=== PATIENT | female | born 1985 | race Caucasian/White ===

== ENCOUNTER 2018-10-22 10:12 | Day surgery (SDC) | payer MEDICAID, OTHER ==
[~2018-10-22] VITALS: Ht 157.5 cm; Wt 57.2 kg
[2018-10-22] VITALS (13 sets, daily range): BP systolic 107–130; BP diastolic 53–74; PULSE 60–105; RESP 10–23; Ht 157.5 cm; Wt 57.2 kg
--- NOTE | 2018-10-22 11:50 | PREAC ---
Date/Time of Note Date/Time of Note DATE: 10/22/18 TIME: 11:49 Anesthesia Eval and Record Evaluation Time Pre-Procedure Interview DATE: 10/22/18 TIME: 11:49 Age 32 Sex female NPO: 8 hrs Preoperative diagnosis desires BTL Planned procedure BTL Past Medical History Past Medical History: None Surgery & Anesthesia Issues No known issue Meds Anticoagulation: No Beta Wilberto within 24 hr: No Reason Beta Wilberto not given: Pt. not on B-Wilberto No Active Prescriptions or Reported Meds Meds reviewed: Yes Allergies Coded Allergies: No Known Allergy (Unverified , 10/22/18) Allergies Reviewed: Yes Labs/Studies Labs Reviewed: Reviewed by anesthesiologist Result Diagram: 10/22/18 1133 Laboratory Tests 10/22/18 11:33 Blood Bank Test 10/22/18 11:00 Blood Type O POSITIVE test: Negative Pre-procedure Exam Last vitals Vital Signs Date Temp Pulse Resp B/P (MAP) Pulse Ox O2 O2 Flow FiO2 Time Delivery Rate 10/22/18 98.3 105 18 130/57 97 Room Air 11:24 (81) Airway: Adequate mouth opening, Adequate thyromental dist Mallampati: Mallampati II Teeth: Normal Lung: Normal Heart: Normal ASA Physical Status ASA physical status: 1 Emergency: None Planned Anesthetic General/MAC: ETT Nerve block: Brachial plexus (bilateral) Pre-operative Attestations Prior to commencing anesthesia and surgery, the patient was re-evaluated, there was verification of: *The patient's identity *The results of appropriate recent lab work and preoperative vital signs *The above evaluation not changing prior to induction *Anesthetic plan, risk benefits, alternative and complications discussed with patient/family; questions answered; patient/family understands, accepts and wishes to proceed. LIZBETH WING Oct 22, 2018 11:50
[2018-10-22] MEDS ORDERED: ONDANSETRON 4 MG INJ IV PRN ×2 (12:00→14:00)
[2018-10-22] MEDS ORDERED: ALBUTEROL 0.083% (NEB) 2.5 MG/3 ML AMP HHN PRN (12:00)
[2018-10-22] MEDS ORDERED: HYDROmorphONE 1 MG/5 ML IV SYRINGE IV PRN ×3 (12:00)
[2018-10-22] MEDS ORDERED: METOCLOPRAMIDE 10 MG INJ IV PRN (12:00)
[2018-10-22] MEDS ORDERED: MEPERIDINE 25 MG INJ IV PRN (12:00)
[2018-10-22] MEDS ORDERED: DIPHENHYDRAMINE 50 MG INJ IV PRN (12:00)
[2018-10-22] MEDS ORDERED: FENTAnyl 50 MCG/ML VIAL IV PRN ×3 (12:00)
[2018-10-22] MEDS ORDERED: ROPIVACAINE 0.5 % 30 ML VIAL ONE (12:02)
[2018-10-22] MEDS ORDERED: FENTAnyl 50 MCG/ML VIAL ONE (12:02)
[2018-10-22] MEDS ORDERED: PROPOFOL 20 ML ONE (13:09)
[2018-10-22] MEDS ORDERED: SUCCINYLCHOLINE CHLORIDE 100 MG/5 ML SYG IV ONE (13:09)
[2018-10-22] MEDS ORDERED: GLYCOPYRROLATE 0.4 MG INJ ONE (13:09)
[2018-10-22] MEDS ORDERED: CEFAZOLIN 1 GM INJ ONE (13:09)
[2018-10-22] MEDS ORDERED: NEOSTIGMINE 3 MG/3 ML SYRINGE ONE (13:09)
[2018-10-22] MEDS ORDERED: LIDOCAINE 100 MG SYRINGE ONE (13:09)
[2018-10-22] MEDS ORDERED: ROCURONIUM 50 MG INJ ONE (13:09)
--- NOTE | 2018-10-22 13:40 | SIPON ---
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
--- NOTE | 2018-10-22 13:54 | PAC ---
Date/Time of Note Date/Time of Note DATE: 10/22/18 TIME: 13:54 Post-Anesthesia Notes Post-Anesthesia Note Last documented vital signs Vital Signs Date Temp Pulse Resp B/P (MAP) Pulse Ox O2 O2 Flow FiO2 Time Delivery Rate 10/22/18 78 15 112/53 93 Room Air 13:40 (72) 10/22/18 98.0 13:24 Activity: WNL Respiratory function: WNL Cardiovascular function: WNL Mental status: Baseline Pain reasonably controlled: Yes Hydration appropriate: Yes Nausea/Vomiting absent: Yes LIZBETH WING Oct 22, 2018 13:54
[2018-10-22] MEDS ORDERED: KETOROLAC 30 MG INJ IV PRN (14:00)
[2018-10-22] MEDS ORDERED: HYDROCODONE/APAP (5/325) TAB PO PRN ×2 (14:00)
[2018-10-22] MEDS ORDERED: morphine 2 MG INJ IV PRN (14:00)
--- NOTE | 2018-10-22 14:00 | PREOPHP ---
DATE OF ADMISSION: 10/22/2018 HISTORY OF PRESENT ILLNESS: A 32-year-old female 5, para 4, AB 1, last menstrual period of 0 10/12/2018, is admitted for voluntary sterilization. PAST MEDICAL HISTORY: Unremarkable. PAST SURGICAL HISTORY: Unremarkable. ALLERGIES: NO KNOWN ALLERGIES. FAMILY HISTORY: Noncontributory. PHYSICAL EXAMINATION: VITAL SIGNS: The patient is afebrile. Stable. HEAD, NECK AND CHEST: Within normal limits. ABDOMEN: Soft, nontender, nondistended. PELVIC: Normal. EXTREMITIES: Within normal limits. NEUROLOGIC: Within normal limits. IMPRESSION: Voluntary sterilization. PLAN: Minilaparotomy, bilateral tubal ligation. Risks, benefits and alternatives of the procedure w ere explained to patient. She understood and gave informed consent for the procedure. Dictated By: JR GONZALEZ/VIRGEN Conf#: [id number] DID#: [id number]
--- NOTE | 2018-10-22 16:25 | OPR ---
DATE OF OPERATION: 10/22/2018 PREOPERATIVE DIAGNOSIS: Voluntary sterilization. POSTOPERATIVE DIAGNOSIS: Voluntary sterilization. OPERATION PERFORMED: Minilaparotomy, bilateral tubal ligation. SURGEON: Jr Zee MD CIRCUS LABORER: office machine technician. ANESTHESIA: General. ANESTHESIOLOGIST: Mike Oswald MD PROCEDURE IN DETAILS: The patient was taken to the operating room, placed on the operating table in supine position. After adequate general anesthesia was given, the area was prepared and draped in th e usual sterile fashion. Using a scalpel, Pfannenstiel incision was made about 2 fingerbreadths abov e the symphysis pubis. The incision was carried down to the fascia. The fascia was incised and sepa rated with Bovie. Two Celestine's were used to separate the fascia from the muscle. Muscle was dissect ed down to peritoneum. The peritoneum was secured with 2 Kellys and incised with Metzenbaum scissors . Upon entering the peritoneal cavity, the right fallopian tube was grasped with a [place] clamp and followed to its fimbrial end to confirm its identity. Using 0 plain suture ligature, a 5 cm segment of the right fallopian tube was doubly ligated. Using Metzenbaum scissors, a portion of the right f allopian tube of the ligated area was excised and sent to pathology. Same procedure was repeated on left fallopian tube. After assuring hemostasis, the peritoneum was closed with 0 chromic continuous. The fascia was closed with 0 Vicryl continuous. Subcutaneous tissue was reapproximated with 2-0 ch romic. Skin was closed with megan. Estimated blood loss was minimal. All counts were correct. Dictated By: JR GONZALEZ/NTS Conf#: [id number] DID#: [id number]
== END 2018-10-22 15:31 | disposition home or self-care (01) ==
LOC: SDS 10:12
PROVIDERS: ATTEND Obstetrics & Gynecology
DX: Z30.2 Encounter for sterilization (principal)
CPT/HCPCS: 58600; 85025; 86850; 86900; 86901; 88302; J0690; J1170; J1885; J2001; J2405; J2710; J2765; J2795; J3010; Z7610

== ENCOUNTER 2018-11-13 15:04 | Emergency (ER) | payer OTHER ==
[~2018-11-13] VITALS: Ht 165.1 cm; Wt 60.0 kg
[2018-11-13 15:33] VITALS: BP 142/76; PULSE 110; RESP 18; Ht 165.1 cm; Wt 60.0 kg
--- NOTE | 2018-11-13 16:52 | ERD ---
ER Documentation Chief Complaint Chief Complaint 3 WKS S/P TUBAL LIGATION WITH INCISIONAL PAIN/SWELLING HPI 32-year-old female who is here 3 weeks status post tubal ligation and she is complaining of some mild swelling and pain at the site of her surgery. She has not had a fever. Is been no bleeding or drainage. She has appointment to see the surgeon next week. ROS All systems reviewed and are negative except as per history of present illness. Medications Home Meds No Active Prescriptions or Reported Meds Allergies Allergies: Coded Allergies: No Known Allergy (Unverified , 11/13/18) PMhx/Soc History of Surgery: Yes (tubal ligation) Anesthesia Reaction: No Hx Neurological Disorder: No Hx Respiratory Disorders: No Hx Cardiac Disorders: No Hx Psychiatric Problems: No Hx Miscellaneous Medical Probl: No Hx Alcohol Use: No Hx Substance Use: No Hx Tobacco Use: No Smoking Status: Never smoker FmHx Family History: No diabetes Physical Exam Vitals Vital Signs Date Temp Pulse Resp B/P (MAP) Pulse Ox O2 O2 Flow FiO2 Time Delivery Rate 11/13/18 97.8 110 18 142/76 99 15:33 (98) Physical Exam INITIAL VITAL SIGNS: Reviewed by me GENERAL: Awake, alert and oriented x 4, well appearing, nontoxic, speaking in full sentences. No acute distress HEAD: Atraumatic NECK: Supple. No masses. Full range of motion. No meningismus. No midline tenderness. EYES: EOMI. PERRL. RESPIRATORY: Clear to auscultation bilaterally. Symmetric chest wall rise. No wheezing or rales. No accessory muscle use. CV: Regular rate and rhythm. No murmurs, rubs, or gallops. ABDOMEN: Soft, non-distended. Nontender. Negative Kanaranzi. Negative McBurneys point tenderness. No CVA tenderness bilaterally. No guarding. No rebound. Healed surgical scar lower abdomen without any surrounding erythema, no edema, no warmth, no tenderness : Deffered. EXTREMITIES: No clubbing or cyanosis. No edema. Moving all extremities normally. Procedures/MDM Patient's examination is within normal limits. She does have a healing surgical scar but it does not appear infected. There is no evidence of other external trauma or infection. There is no evidence of hernia. She is well-appearing in no distress. She should keep her appointment with surgeon next week and return here for any new or worsening symptoms. Patient counseled regarding my diagnostic impression and care plan. Prior to discharge all questions answered. Pt agrees with treatment plan and understands strict return precautions. Pt is instructed to follow up with primary care provider within 24-48 hours. Precautionary instructions provided including instructions to return to the ER if not improving or for any worsening or changing symptoms or concerns. Departure Diagnosis: Primary Impression: Visit for wound check Condition: Stable GOLDEN RAE PA-C Nov 13, 2018 16:52
== END 2018-11-13 17:03 | disposition home or self-care (01) ==
LOC: FTE 15:04
DX: Z48.01 Encounter for change or removal of surgical wound dressing (principal)
CPT/HCPCS: 99281